=== PATIENT | female | born 1980 | race Caucasian/White ===

== ENCOUNTER 2021-01-23 14:48 | Emergency (ER) | payer OTHER ==
[~2021-01-23] VITALS: Ht 160 cm; Wt 107.2 kg
[2021-01-23] MEDS ORDERED: ACET-907 PO (14:58)
[2021-01-23] MEDS ORDERED: NABU-71 PO (14:58)
[2021-01-23] MEDS ORDERED: BACL10TA2 PO (14:58)
[2021-01-23] MEDS ORDERED: KETOROLAC 60MG 2ML VIAL IM ONE (16:15)
--- NOTE | 2021-01-23 16:43 | REP ---
INDICATION: fall severe pain in shoulder. COMPARISON: None. TECHNIQUE: Three views of the right shoulder are provided. FINDINGS: Right glenohumeral and acromioclavicular joints are normally aligned. Periarticular soft tissues are unremarkable. No fracture or subluxation is seen. The visualized right hemithorax is unremarkable. IMPRESSION: Negative radiographs of the right shoulder. No fracture seen. <Electronically signed by Kyrie Vu > 01/23/21 [id number]
--- NOTE | 2021-01-23 16:43 | REP ---
INDICATION: fall severe pain in arm. COMPARISON: None. TECHNIQUE: AP and lateral views. FINDINGS: AP and lateral views of the right forearm demonstrate normal bones, joints, and soft tissues. No fracture or subluxation is seen. No opaque foreign body noted. IMPRESSION: Negative right forearm series. <Electronically signed by Kyrie Vu > 01/23/21 [id number]
[2021-01-23 17:24] VITALS: BP 114/73
== END 2021-01-23 17:25 | disposition home or self-care (01) ==
LOC: M ED 14:48
DX: M25.511 Pain in right shoulder (principal); M79.631 Pain in right forearm; M54.2 Cervicalgia; W01.0XXA Fall on same level from slipping, tripping and stumbling without subsequent striking against object, initial encounter; Y92.019 Unspecified place in single-family (private) house as the place of occurrence of the external cause; Y93.9 Activity, unspecified; Y99.9 Unspecified external cause status; Z88.1 Allergy status to other antibiotic agents
CPT/HCPCS: 73030; 73090; 96372; 99283; J1885